=== PATIENT | male | born 1930 | race Caucasian/White ===

== ENCOUNTER 2016-11-05 17:37 | Emergency (ER) | payer OTHER ==
[~2016-11-05] VITALS: Ht 170.2 cm; Wt 88.6 kg
[2016-11-05 18:35] LABS: BASOPHIL COUNT 0.1 K/uL (0-0.1); EOSINOPHIL (%) 2.7 % (0-5); EOSINOPHIL COUNT 0.3 K/uL (0-0.3); HEMATOCRIT 42.3 % (38.0-50.0); IMMATURE GRANULOCYTE (%) 0.4 % (0.0-0.7); INSTRUMENT ABS NEUTROPHIL CT 6.4 K/uL; LYMPHOCYTE COUNT 2.1 K/uL (1.0-2.8); MCH 30.8 PG (29.0-34.0); MCHC 33.8 G/DL (30.0-36.0); MEAN PLAT.VOLUME 9.7 uM^3 (9.0-12.4); MONOCYTE (%) 9.2 % (3-12); MONOCYTE COUNT 0.9 K/uL (0-0.8); NEUTROPHIL (%) 65.5 % (45-76); NEUTROPHIL COUNT 6.4 K/uL (1.8-6.4); PLATELET COUNT 171 K/uL (156-360); RBC DIS.WIDTH-CV 13.3 % (11.8-14.6); RBC DIS.WIDTH-SD 44.1 % (39-53); RED BLOOD COUNT 4.65 M/uL (4.00-5.50); WHITE BLOOD COUNT 9.8 K/uL (4.1-10.2)
[2016-11-05 18:52] LABS: CHLORIDE 103 mEq/L (99-109); POTASSIUM 4.1 mEq/L (3.7-5.4); SODIUM 139 mEq/L (136-147)
[2016-11-05 18:54] LABS: GLUCOSE 92 mg/dL (70-99)
[2016-11-05 18:55] LABS: ANION GAP 9 MEQ/L (2-14)
[2016-11-05 18:57] LABS: PROTHROMBIN TIME 91.3 (9.2-11.2); PTT 56.6 (25-32)
[2016-11-05 18:58] LABS: GFR ESTIMATE (CALCULATED) > 59 mL/min/
[2016-11-05 18:59] LABS: UREA NITROGEN (BUN) 15 mg/dL (9-23)
[2016-11-05 19:00] LABS: INTER. NORMALIZED RATIO 8.4
[2016-11-05 19:35] VITALS: BP 157/94
== END 2016-11-05 19:37 | disposition home or self-care (01) ==
LOC: EME 17:37
PROVIDERS: Nurse Practitioner Family
DX: R79.1 Abnormal coagulation profile (principal); I10 Essential (primary) hypertension; I25.2 Old myocardial infarction; Z87.442 Personal history of urinary calculi; Z79.01 Long term (current) use of anticoagulants; Z95.1 Presence of aortocoronary bypass graft; Z87.891 Personal history of nicotine dependence
CPT/HCPCS: 80048; 85025; 85610; 85730; 99281; 99284